=== PATIENT | female | born 1980 | race Hispanic/Latino ===

== ENCOUNTER 2022-03-02 21:27 | Emergency (ER) | payer OTHER ==
[2022-03-02] MEDS ORDERED: Ondansetron PF 4 MG/2 ML Vial ONE (21:45)
[2022-03-02 23:44] LABS: #Monocytes 0.8 10x3/uL (0.0-1.1); #Neutrophils 16.2 10x3/uL (1.5-8.4); %Basophils 0.2 % (0.0-2.0); %Eosinophils 0.1 % (0.0-6.0); %Lymphocytes 6.9 % (18.0-47.0); %Monocytes 4.4 % (0.0-10.0); Hemoglobin 11.2 g/dL (12.0-15.5); Mean Corpuscular HGB CONC 32.3 g/dL (32.0-36.0); Mean Corpuscular Hemoglobin 25.2 pg (27.0-33.0); Mean Corpuscular Volume 78.2 fl (81.6-98.3); Mean Platelet Volume 10.7 fl (7.4-10.4); Platelet Count 369 10x3/uL (150-450); RBC Distribution Width 15.9 % (11.5-14.5); Red Blood Cell (RBC) Count 4.44 10x6/uL (3.90-5.03); White Blood Cell (WBC) Count 18.4 10x3/uL (3.5-10.5)
[2022-03-02 23:56] LABS: BHCG - Serum Negative (NEGATIVE); INR-International Normal Ratio 0.9; PTT 24.5 sec (22.0-33.0)
[2022-03-02 23:57] LABS: Pregs Control Background? CLEAR/WHITE (CLR/WHITE); Pregs Control Bar Appear? YES (CONTROL BAR)
[2022-03-03] LABS: ALT (SGPT) 18 U/L (8-55); AST (SGOT) 15 U/L (5-34); Albumin 4.2 g/dL (3.5-5.0); Alkaline Phosphatase 87 U/L (40-110); Anion Gap 13 mmol/L (10-20); BUN (Urea Nitrogen) 15 mg/dL (7.0-18.7); Bilirubin, Total 0.2 mg/dL (0.2-1.2); Calc. Creatinine Clearance 0 mL/min (70-130); Calcium 8.8 mg/dL (7.8-10.44); Carbon Dioxide 24 mmol/L (22-29); Chloride 105 mmol/L (98-107); Estimated GFR 93; Globulin 3.4 g/dL (2.4-3.5); Glucose 112 mg/dL (70-105); Potassium 3.9 mmol/L (3.5-5.1); Protein, Total 7.6 g/dL (6.0-8.3); Sodium 138 mmol/L (136-145)
[2022-03-03 00:42] LABS: SARS-CoV-2 NAA Rapid Test Not Detected (NotDetected)
[2022-03-03] MEDS ORDERED: Fentanyl 100 MCG/2 ML VIAL ONE (01:02)
[2022-03-03] MEDS ORDERED: Iopamidol 370 76% 100 ML VIAL ONE (09:13)
== END 2022-03-03 04:01 | disposition short-term general hospital (02) ==
LOC: CSHERS 21:27
DX: S13.160A Subluxation of C5/C6 cervical vertebrae, initial encounter (principal); I10 Essential (primary) hypertension; V43.52XA Car driver injured in collision with other type car in traffic accident, initial encounter; Z20.822 Contact with and (suspected) exposure to COVID-19
CPT/HCPCS: 36415; 70450; 70498; 71260; 72125; 74177; 80053; 84703; 85025; 85610; 85730; G0390; J2405; J3010; Q9967; U0002

== ENCOUNTER 2022-03-31 10:27 | Outpatient (CLI) | payer BC, SELFPAY | END 2022-03-31 10:28 | disposition home or self-care (01) | LOC: CSHRAD 10:27 | PROVIDERS: ATTEND Physician Assistant Surgical | DX: S12.9XXD Fracture of neck, unspecified, subsequent encounter (principal); M43.12 Spondylolisthesis, cervical region | CPT/HCPCS: 72040 ==